=== PATIENT | female | born 1935 | race Caucasian/White ===

== ENCOUNTER 2016-10-11 07:54 | Inpatient (IN) | payer MEDICARE ==
[~2016-10-11 07:54] MED LIST: ASPIRIN EC81 MG PO; B-12500 MC1 PO; BISCOLAX10 MG PR; CALCIUM 600 +1 EA17 PO; CATAPRES0.2 M1 PO; CELEXA20 M2 PO; COLACE100 M1 PO; DELTASONE20 MG PO; HYDROCODON-ACE1 EA16 PO; IPRAT-ALBUT 0.5-3 ML INH; MEDROL4 M1 PO; MULTIVITAMINS1 EAC6 PO; PEPCID20 M1 PO; PRAVACHOL40 M1 PO; PRINIVIL5 M1 PO; SYNTHROID75 MC1 PO; TIMOPTIC10 ML OP; TYLENOL PM EX-1 EAC4 PO; VITAMIN C500 M3 PO; VITAMIN E100 UNI6 PO; XALATAN2.5 M1 OP; XANAX0.25 M1 PO; ZANAFLEX4 M2 PO; ZEBETA10 M1 PO; ZIAC 10-6.25 M1 EACH PO
[2016-10-11 08:14] LABS: ABG CO2 ARTERIAL 17 mmol/L (21-27); ARTERIAL BLD GAS O2 SATURATION 40 % (95-98); ARTERIAL BLOOD GAS PCO2 43 mmHg (32-45); BICARBONATE 15 mmol/L (21-28); BLOOD GAS BASE EXCESS -12 mM/L (-/+3)
[2016-10-11 08:25] LABS: ARTERIAL PO2 32 mmHg (70-100); PH 7.17 Units (7.35-7.45)
[2016-10-11] MEDS ORDERED: OCEAN104 ML (08:25)
[2016-10-11] MEDS ORDERED: PROCRIT10000 UNIT SC (08:32)
[2016-10-11] MEDS ORDERED: CALMOSEPTINE OI71 G1 TP (08:33)
[2016-10-11] MEDS ORDERED: SLOW-MAG71.5 MG PO (08:34)
[2016-10-11] MEDS ORDERED: RANITIDINE HCL150 M3 PO (08:36)
[2016-10-11] MEDS ORDERED: RANEXA500 M1 PO (08:51)
[2016-10-11] MEDS ORDERED: VENTOLIN HFA18 G2 INH (08:53)
[2016-10-11 09:01] LABS: BASO % 0.2 % (0-2); BASO ABSOLUTE COUNT 0.1 tho/cmm (0.0-0.2); EOS % 0.1 % (0-7); HCT-HEMATOCRIT 33.1 % (34.0-49.0); HGB-HEMOGLOBIN 10.8 gm/dl (12.0-15.5); IMMATURE GRANULOCYTES ABSOLUTE 0.37 tho/cmm (0-0.03); IMMATURE GRANULOCYTES PERCENT 1.5 % (0-0.3); LYMPH % 6.3 % (20-45); LYMPH ABSOLUTE COUNT 1.5 tho/cmm (0.8-4.5); MCH (MEAN CORPUSCULAR HGB) 30.4 pg (28.0-32.0); MCHC MEAN CORPUSCULAR HGB CONC 32.6 % (32.0-36.0); MCV (MEAN CELL VOLUME) 93.2 fl (82.0-96.0); MEAN PLATELET VOLUME 9.1 cmc (9.4-12.4); MONO % 5.3 % (0-12); MONOCYTE ABSOLUTE COUNT 1.3 tho/cmm (0.0-1.2); NEUTROPHILS % 86.6 % (40-80); PLATELET COUNT 459 tho/cmm (150-450); RED BLOOD COUNT 3.55 mil/cmm (4.00-5.20); RED CELL DISTRIBUTION WIDTH 16.8 % (12.4-16.4); WHITE BLOOD COUNT 24.3 tho/cmm (4.0-10.0)
[2016-10-11] MEDS ORDERED: TYLENOL325 M2 PO (09:02)
[2016-10-11 09:20] LABS: ANION GAP 17 mmol/L (0-20); BLOOD UREA NITROGEN 20 mg/dl (6-24); CALCIUM 8.7 mg/dl (8.5-10.5); CARBON DIOXIDE-VENOUS 22 mmol/L (22-32); CHLORIDE 95 mmol/l (96-110); GLUCOSE 223 mg/dL (70-110); POTASSIUM 4.3 mmol/L (3.7-5.1); SODIUM 130 mmol/L (135-145); eGFR VALUE FOR BLACK 32 mL/Min
[2016-10-11] MEDS ORDERED: XANAX0.25 M1 PO (09:20)
[2016-10-11] MEDS ORDERED: BETAMETHASONE D15 G5 TP (09:22)
[2016-10-11] MEDS ORDERED: ZEBETA10 M1 PO (09:24)
[2016-10-11 09:48] LABS: ABG CO2 ARTERIAL 21 mmol/L (21-27); ARTERIAL BLD GAS O2 SATURATION 99 % (95-98); ARTERIAL BLOOD GAS PCO2 39 mmHg (32-45); ARTERIAL PO2 136 mmHg (70-100); BICARBONATE 20 mmol/L (21-28); BLOOD GAS BASE EXCESS -5 mM/L (-/+3); PH 7.33 Units (7.35-7.45)
[2016-10-11 10:02] LABS: WBC MORPHOLOGY VACUOLES
[2016-10-11 10:17] LABS: PROCALCITONIN 0.46 ng/ml (0.05-0.09)
[2016-10-11 16:34] LABS: PROCALCITONIN 4.44 ng/ml (0.05-0.09)
== END 2016-10-11 18:53 | disposition expired | DRG 871 ==
LOC: EDMED 07:54 → EMR2 11:10 → CCU 11:18
PROVIDERS: Emergency Medicine; ADMIT Family Medicine
PROC: 02HV33Z Insertion of Infusion Device into Superior Vena Cava, Percutaneous Approach (ICD-10-PCS; principal; 2016-10-11)
DX: A41.9 Sepsis, unspecified organism (principal); J96.21 Acute and chronic respiratory failure with hypoxia; J18.9 Pneumonia, unspecified organism; N17.9 Acute kidney failure, unspecified; R65.20 Severe sepsis without septic shock; I73.9 Peripheral vascular disease, unspecified; I12.9 Hypertensive chronic kidney disease with stage 1 through stage 4 chronic kidney disease, or unspecified chronic kidney disease; N18.9 Chronic kidney disease, unspecified
CPT/HCPCS: C1751; J1956; J2060; J2270; J2543; J2930; J3370; J7030